=== PATIENT | male | born 1980 | race Caucasian/White ===

== ENCOUNTER 2023-01-31 10:14 | Outpatient (REF) | payer MEDICAID, SELFPAY ==
[2023-01-31 11:01] LABS: Estimated Average Glucose 108 mg/dL; Hemoglobin A1c % 5.4 % (<6.0)
[2023-01-31 11:37] LABS: Alanine Aminotransferase 20 U/L (0-40); Albumin Level 4.3 g/dL (3.5-5.0); Alkaline Phosphatase 78 U/L (39-117); Anion Gap 13 (12-20); Aspartate Amino Transferase 18 U/L (5-37); Bilirubin Total 0.8 mg/dL (0.0-1.0); Blood Urea Nitrogen 13 mg/dL (9-16); Calcium 9.8 mg/dL (8.4-10.2); Carbon Dioxide 24 mmol/L (22-29); Chloride 108 mmol/L (96-108); Cholesterol 210 mg/dL (<200); Estimated Glomerular Filt Rate > 60; Glucose Random 98 mg/dL (60-115); HDL Cholesterol 42 mg/dL (>40); LDL Cholesterol Calculated 150 mg/dL (<100); Potassium 4.4 mmol/L (3.3-5.1); Sodium 141 mmol/L (135-145); Total Protein 7.3 g/dL (6.5-8.0); Triglycerides 90 mg/dL (<150)
[2023-01-31 11:56] LABS: Thyroid Stimulating Hormone 1.61 uIU/mL (0.32-4.0)
[2023-01-31 13:30] LABS: CT PCR NOT DETECTED (Not Detect.); NG PCR NOT DETECTED (Not Detect.)
[2023-02-02 07:50] LABS: Syphilis Screen Nonreactive (Nonreactive)
[2023-02-02 08:19] LABS: HBS Num1 0.25 mIU/mL (0-7.99); HBsAGNum1 0.35 S/CO (0.00-0.99); Hepatitis B Core Antibody Nonreactive (Nonreactive); Hepatitis B Surface Antigen Negative (Negative); ~HepC Num1 0.06 S/CO (0.00-0.79); ~Hepatitis B Surface Antibody NONREACTIVE (Nonreactive); ~Hepatitis C Antibody Nonreactive (Nonreactive)
[2023-02-12 10:38] LABS: HIV 1 Antibody NEGATIVE
[2023-02-12 10:42] LABS: HIV 2 Antibody NEGATIVE
== END 2023-01-31 10:15 | disposition home or self-care (01) ==
LOC: HO.LAB 10:14
PROVIDERS: PCP Family Medicine; Visit Provider Family Medicine
DX: Z00.00 Encounter for general adult medical examination without abnormal findings (principal)
CPT/HCPCS: 0353U; 80053; 80061; 83036; 84443; 86701; 86702; 86704; 86706; 86780; 86803; 87340

== ENCOUNTER 2023-02-16 10:32 | Outpatient (AMB) | payer MEDICAID, SELFPAY ==
--- NOTE | 2023-02-16 10:35 | A.OFFVIS_ITS ---
Intake Vital Signs 02/16/23 10:38 Height 5 ft 7 in Weight 219 lb BMI 34.3 BP 147/81 H Blood Pressure Location Rt brachial Position Sitting Pulse 109 H Intake Visit Reasons: Mass on back Intake Note: Patient referred for large growth on back. Noticed by 3wks ago. Denies hx of trauma. 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 Each are increasing in size, become more symptomatic. Wished to have them removed. Patient has no such lesions elsewhere. Chart was reviewed patient evaluated FORMERLY [facility], [facility] Surgical History (Updated 02/16/23 @ 11:03 by Pj Perales MD) Hx of left knee surgery Social History (Updated 02/16/23 @ 10:41 by EMA Landers) Alcohol intake: never Patient Tobacco Use Status: Current someday Tobacco user Tobacco use type: Cigarette Cigarettes Per Day: 15 Physical Exam Vital Signs: Last Vital Signs Pulse 109 H 02/16/23 10:38 BP 147/81 H 02/16/23 10:38 BMI result Body Mass Index 34.3 Chest Other: Chest breath sounds bilaterally, HS 1 in 2 GI Other: Abdomen soft, moderately corpulent, benign Back/Spine/Pelvis Other: Patient has a approximately 2 x 2 cm mid back sebaceous cyst. Patient has an infra scapular tip soft tissue mass consistent with a large lipoma measuring approximately 5 x 5 cm. Assessment & Plan Assessment & Plan (1) Sebaceous cyst: Code(s): L72.3 - Sebaceous cyst (2) Lipoma of back: Code(s): D17.1 - Benign lipomatous neoplasm of skin and subcutaneous tissue of trunk Plan Patient wishes to have both these processes excised. Risks, benefits, alternatives of excision of sebaceous cyst and were posterior right back lipoma reviewed the patient and included but not limited to bleeding, infection, recurrence, numbness, pain, scarring, seroma formation, wound dehiscence and the patient wishes to proceed. All questions were answered. Arrangements were made for this. Patient was told the postoperatively, he will need to be relatively sedentary to allow wound healing. He understood this. Coding Level of Care Code New Pt Level 5 (23332) Diagnoses Sebaceous cyst L72.3 Lipoma of back D17.1
[2023-02-16 10:38] VITALS: BP 147/81; PULSE 109; BMI 34.3
== END 2023-02-16 11:10 | disposition home or self-care (01) ==
PROVIDERS: PCP Family Medicine; Referring Provider Family Medicine; Visit Provider Surgery
DX: L72.3 Sebaceous cyst (principal); D17.1 Benign lipomatous neoplasm of skin and subcutaneous tissue of trunk
CPT/HCPCS: 99204

== ENCOUNTER → 2023-02-16 10:32 | Outpatient (BNVA) | payer MEDICAID, SELFPAY | PROVIDERS: PCP Family Medicine; Referring Provider Family Medicine; Visit Provider Surgery ==

== ENCOUNTER 2023-02-25 09:56 | Day surgery (SDC) | payer MEDICAID, SELFPAY ==
[2023-02-20 14:36] VITALS: BMI 34.3
--- NOTE | 2023-02-24 10:57 | HO.ANESPROP2 ---
Documented by User: Alessandra Trevizo NP 02/24/23 10:59 HPI - Anesthesia Eval Consult details Narrative: 42yo M for Wide Local Excision Right Back Giant Lipoma, Right Wide Local Excision Mid Back Sebaceous Cyst PMFSH Active Problems Active Problems: All Active Problems (Updated 02/16/23 @ 11:03 by Pj Perales MD) Lipoma of back (Acute) Sebaceous cyst (Acute) Past Medical History Medical History DALE (obstructive sleep apnea) Sebaceous cyst Lipoma of back Surgical History Surgical History Hx of left knee surgery Social History Social History Alcohol intake: never Patient Tobacco Use Status: Current everyday Tobacco user Tobacco use type: Cigarette Cigarettes Per Day: 15 Meds Allergies Allergy/AdvReac Type Severity Reaction Status Date / Time No Known Allergies Allergy Verified 02/25/23 10:06 Exam Exam Date and Time: February 24, 2023 1057 Height,Weight and Vital Signs: Height 5 ft 7 in Weight 99.337 kg Pertinent Lab Results Pertinent Lab Results: Laboratory Tests 01/31/23 10:37 Sodium 141 Potassium 4.4 Chloride 108 Carbon Dioxide 24 BUN 13 Creatinine 0.89 Assessment and Plan Assessment Anesthesia Assessment: Chart Reviewed Documented by User: Francoise Powers MD 02/25/23 13:11 PMFSH Active Problems Active Problems: All Active Problems (Updated 02/25/23 @ 11:58 by Francoise Powers MD) Lipoma of back (Acute) Sebaceous cyst (Acute) Past Medical History Medical History DALE (obstructive sleep apnea) Sebaceous cyst Lipoma of back Family History Family history of problems with anesthesia: No Surgical History Surgical History Hx of left knee surgery History of Problems with Anesthesia: No Social History Social History Alcohol intake: never Patient Tobacco Use Status: Current everyday Tobacco user Tobacco use type: Cigarette Cigarettes Per Day: 15 Meds Allergies Allergy/AdvReac Type Severity Reaction Status Date / Time No Known Allergies Allergy Verified 02/25/23 10:06 Exam Height,Weight and Vital Signs: Height 5 ft 7 in Weight 99.337 kg Vital Signs Temp Pulse Resp BP Pulse Ox O2 Del Method 02/25/23 10:10 97.9 F 98 16 138/92 H 98 Room Air Airway Mallampati Class: IV TM Dist: >3cm Neck ROM: Full Partial: Lower Loose/Missing/Broken Teeth: Yes (Partial bottom. Denies broken or loose teeth) Heart: RRR Lungs: CTAB Assessment and Plan Assessment Anesthesia Assessment: Anesthesia Plan Discussed Final Anesthetic Review Family History of Problems with Anesthesia: No History of Problems with Anesthesia: No NPO: Yes ASA Class: III Final Preanesthetic Review: No Changes in Pt Med Stat, Meds/Allgs Chart Reviewed, Consent Obtained/Reviewed and Anes Risks/Benef Reviewed Patient Risk: Intermediate Procedure Risk: Low Assessment/Block/Sedation in SS: Assess/Block/Sedation-SS Anesthetic Plan Anesthetic Plan: GA and MAC: Disposition: Standard PACU
--- NOTE | 2023-02-24 13:37 | MHC.SHP ---
Pre-Procedural Eval Section A Date of Service: 02/24/23 The patient is an INPATIENT: No Changes since office visit: No Cold of Flu in the past 2 weeks, No New Medical Problems, No Changes in Medication and No Patient answered all questions The History & Physical has been completed within 30 days and I have reviewed it.: Yes Section B Chief Complaint: Benign lipomatous neoplasm of skin and subcutaneou Allergies: Allergies Allergy/AdvReac Type Severity Reaction Status Date / Time No Known Allergies Allergy Verified 02/16/23 10:40 Plan I have reviewed the history and physical and performed a pertinent physical examination on my patient. No changes have occurred unless specified. Time Spent With Patient Time: Total time managing care of this patient today ____ minutes.
[2023-02-25 10:00] VITALS: BMI 32.9
[2023-02-25 10:10] VITALS: BP 138/92; PULSE 98; RESP 16; TEMP 36.6; O2SAT 98
[2023-02-25] MEDS: Lactated Ringers 1,000 ML 100 ML IVCONT (10:12)
--- NOTE | 2023-02-25 13:07 | P.OP_ITS ---
Operative Note Operative Note Date of Service: 02/25/23 Narrative: Preoperative diagnosis: [] 1. Large deep right mid back lipoma 2. Mid back sebaceous cyst Postop diagnosis: [] Same Procedure [] 1. Excision large right mid back lipoma 2. Excision mid back sebaceous cyst Surgeon: [] Diaz Salary And Wage Administrator: [] David Type of Anesthesia: [] MAC Indication for surgery: [] Lipoma measured approximately 8 x 7 cm deeply situated lipoma. Sebaceous cyst measured approximately 3 x 4 cm. Findings: Patient brought to the operating room, placed on operative table in supine position, after adequate level of MAC anesthesia was induced, patient was placed in left lateral decubitus position. Back was prepped and draped in usual sterile fashion. Each proposed incision site was infiltrated with 0.5% Marcaine/1% lidocaine. Commencing with the lipoma, a transverse incision was made over the skin and carried down through subcutaneous tissue down to a massive lipoma which was intimately adhered to the surrounding tissue and back muscle. Using Bovie, this specimen was uneventfully excised and sent to pathology for permanent specimen taken. Wounds irrigated, secured hemostasis, and closed using interrupted inverted dermal 2-0 Vicryl sutures followed by Steri-Strips and sterile dressing. Next a transverse by elliptical incision was made around the lipoma in the mid back and carried down through skin, subcutaneous tissue, and undermined using Bovie. Specimen sent to pathology. Wound was irrigated, secured hemostasis, and closed using interrupted inverted dermal 2-0 Vicryl sutures followed by Steri-Strips and sterile dressings. Sponge, needle, instrument counts reported correct. Patient tolerated the procedure well and emerged anesthesia in stable condition. EBL minimal
[2023-02-25 13:20] VITALS: BP 135/87; PULSE 75; RESP 18; TEMP 36.4; O2SAT 98
== END 2023-02-25 13:53 | disposition home or self-care (01) ==
PROVIDERS: PCP Family Medicine; Visit Provider Surgery
PROC: (CPT 21931; principal; 2023-02-25 11:50)
PROC: (CPT 21931; 2023-02-25 11:50)
DX: D17.1 Benign lipomatous neoplasm of skin and subcutaneous tissue of trunk (principal); L72.3 Sebaceous cyst; G47.33 Obstructive sleep apnea (adult) (pediatric); F17.210 Nicotine dependence, cigarettes, uncomplicated
CPT/HCPCS: 21931; 11404; 88304; J0690; J2250; J3010

== ENCOUNTER → 2023-02-25 09:56 | Outpatient (BNV) | payer MEDICAID, SELFPAY | PROVIDERS: PCP Family Medicine; Visit Provider Surgery | DX: D17.1 Benign lipomatous neoplasm of skin and subcutaneous tissue of trunk (principal); L72.0 Epidermal cyst | CPT/HCPCS: 11403; 21931 ==

== ENCOUNTER 2023-03-10 15:13 | Outpatient (AMB) | payer MEDICAID, SELFPAY ==
--- NOTE | 2023-03-10 15:18 | MHC.OFFVIS ---
Intake Vital Signs 03/10/23 15:19 Height 5 ft 7 in Weight 213 lb BMI 33.4 BP 142/86 H Blood Pressure Location Rt brachial Position Sitting Pulse 90 Intake Visit Reasons: S/p wle right back lipoma, WLE mid back arun cyst Intake Note: Patient here s/p exc X2 on back. Reports incisions healing well. C/o pain when changing positions. Gardner nausea with rx pain meds. Requesting Motrin 800mg. Data Developer Required: No Accompanied by: Self / Same As Patient Allergies No Known Allergies Allergy (Verified 03/10/23 15:21) HPI HPI Comments History of Present Illness Details Patient presents for follow-up. He has minimal incisional discomfort. Pathologies were both benign. [facility], LAT[facility] Medical History DALE (obstructive sleep apnea) Sebaceous cyst Lipoma of back Surgical History Hx of left knee surgery Social History Alcohol intake: never Patient Tobacco Use Status: Current everyday Tobacco user Tobacco use type: Cigarette Cigarettes Per Day: 15 Physical Exam Vital Signs: Last Vital Signs Pulse 90 03/10/23 15:19 BP 142/86 H 03/10/23 15:19 BMI result Body Mass Index 33.4 Back/Spine/Pelvis Other: Both wound incisions are clean dry and intact. Right mid back lipoma has findings suggestive of a seroma. Under sterile technique, approximately 50 cc of seroma was drained. Patient tolerated procedure well. Dressing applied. Assessment & Plan Assessment & Plan (1) Lipoma of back: Code(s): D17.1 - Benign lipomatous neoplasm of skin and subcutaneous tissue of trunk (2) Sebaceous cyst: Code(s): L72.3 - Sebaceous cyst Plan Patient was given another week of cough work and then work note to return with 2 weeks light duty. He will otherwise follow up p.r.n.. Coding Level of Care Code Global (42105) Diagnoses Lipoma of back D17.1 Sebaceous cyst L72.3
[2023-03-10 15:19] VITALS: BP 142/86; PULSE 90; BMI 33.4
== END 2023-03-10 15:35 | disposition home or self-care (01) ==
PROVIDERS: PCP Family Medicine; Visit Provider Surgery
DX: D17.1 Benign lipomatous neoplasm of skin and subcutaneous tissue of trunk (principal); L72.3 Sebaceous cyst
CPT/HCPCS: 99024

== ENCOUNTER → 2023-03-10 15:13 | Outpatient (BNVA) | payer MEDICAID, SELFPAY | PROVIDERS: PCP Family Medicine; Visit Provider Surgery ==

== ENCOUNTER 2023-03-17 09:28 | Outpatient (AMB) | payer MEDICAID, SELFPAY ==
[2023-03-17 09:41] VITALS: BP 133/80; PULSE 82; BMI 33.5
--- NOTE | 2023-03-17 09:41 | A.OFFVIS_ITS ---
Intake Vital Signs 03/17/23 09:41 Height 5 ft 7 in Weight 214 lb BMI 33.5 BP 133/80 Blood Pressure Location Rt brachial Position Sitting Pulse 82 Intake Visit Reasons: S/p exc R back lipoma, filling w/ fluid Intake Note: Patient here s/p exc on back. C/o exc site filling up with fluid. C/o pain and tenderness with touch. Taking rx pain meds as needed. 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 PFSH Medical History DALE (obstructive sleep apnea) Sebaceous cyst Lipoma of back Surgical History Hx of left knee surgery Social History Alcohol intake: never Patient Tobacco Use Status: Current everyday Tobacco user Tobacco use type: Cigarette Cigarettes Per Day: 15 Physical Exam Vital Signs: Last Vital Signs Pulse 82 03/17/23 09:41 BP 133/80 03/17/23 09:41 BMI result Body Mass Index 33.5 Back/Spine/Pelvis Other: Incision clean dry and intact. Recurrent seroma demonstrated. Under sterile technique approximately 50 cc of serous fluid was were retrieved without incident. Well tolerated. Dressing applied. Assessment & Plan Assessment & Plan (1) Seroma due to trauma: Code(s): T79.2XXA - Traumatic secondary and recurrent hemorrhage and seroma, initial encounter (2) Lipoma of back: Code(s): D17.1 - Benign lipomatous neoplasm of skin and subcutaneous tissue of trunk Plan Patient has once again been encouraged to avoid strenuous activities. He will follow-up p.r.n. should this recur or other issues with the wounds. All questions answered Coding Level of Care Code Global (67836) Diagnoses Seroma due to trauma T79.2XXA Lipoma of back D17.1
== END 2023-03-17 09:46 | disposition home or self-care (01) ==
PROVIDERS: PCP Family Medicine; Visit Provider Surgery
DX: T79.2XXA Traumatic secondary and recurrent hemorrhage and seroma, initial encounter (principal); D17.1 Benign lipomatous neoplasm of skin and subcutaneous tissue of trunk
CPT/HCPCS: 99024

== ENCOUNTER → 2023-03-17 09:28 | Outpatient (BNVA) | payer MEDICAID, SELFPAY | PROVIDERS: PCP Family Medicine; Visit Provider Surgery ==

== ENCOUNTER → 2023-03-25 13:44 | Outpatient (REF) | payer MEDICAID, SELFPAY | LOC: HO.SL 13:44 | PROVIDERS: PCP Family Medicine; Visit Provider Family Medicine | DX: G47.33 Obstructive sleep apnea (adult) (pediatric) (principal) | CPT/HCPCS: 95806 ==

== ENCOUNTER → 2023-03-25 19:00 | Outpatient (BNV) | payer MEDICAID, SELFPAY | PROVIDERS: PCP Family Medicine; Visit Provider Internal Medicine | DX: G47.33 Obstructive sleep apnea (adult) (pediatric) (principal) | CPT/HCPCS: 95806 ==